=== PATIENT | female | born 1995 | race Caucasian/White ===

== ENCOUNTER 2022-06-30 18:52 | Emergency (ER) | payer MEDICAID ==
[~2022-06-30] VITALS: Ht 160 cm; Wt 97.0 kg
[2022-06-30 19:10] VITALS: BP 107/59
== END 2022-06-30 22:49 | disposition left against medical advice (07) ==
LOC: ER 20:40
DX: Z53.21 Procedure and treatment not carried out due to patient leaving prior to being seen by health care provider (principal)